=== PATIENT | female | born 1995 | race Caucasian/White ===

== ENCOUNTER 2018-04-20 15:44 | Emergency (ER) | payer OTHER ==
[2018-04-20 16:28] LABS: BILIRUBIN,URINE NEGATIVE (NEGATIVE); GLUCOSE, URINE (UA) NEGATIVE (NEGATIVE); KETONES,URINE (UA) 15 mg/dL (NEGATIVE); LEUKOCYTE ESTERASE, URINE NEGATIVE (NEGATIVE); NITRITE,URINE NEGATIVE (NEGATIVE); OCCULT BLOOD,URINE NEGATIVE (NEGATIVE); PROTEIN,URINE NEGATIVE (NEGATIVE); UROBILINOGEN,URINE 1 (NORMAL) E.U./dL (NORMAL)
[2018-04-20 16:31] LABS: CLARITY,URINE CLEAR (CLEAR); HCG UR QUAL NEGATIVE
[2018-04-20 16:42] LABS: BASOPHILS % (AUTO) 0.2 %; EOSINOPHILS % (AUTO) 0.2 %; HGB - HEMOGLOBIN 14.4 g/dL (12.0-16.0); LYMPHOCYTES # (AUTO) 1.5 10^3/uL (1.5-3.5); LYMPHOCYTES % (AUTO) 14.1 %; MEAN CORPUSCULAR HEMOGLOBIN 31.2 pg (27.0-31.0); MEAN CORPUSCULAR HGB CONC 34.5 g/dL (32.0-36.0); MEAN CORPUSCULAR VOLUME 90.4 fL (81.0-99.0); MEAN PLATELET VOLUME 8.1 fL (7.9-10.8); MONOCYTES # (AUTO) 0.8 10^3/uL (0.0-1.0); MONOCYTES % (AUTO) 7.4 %; NEUTROPHILS # (AUTO) 8.3 10^3/uL (1.5-6.6); NEUTROPHILS % (AUTO) 78.1 %; PLT - PLATELET COUNT 260 10^3/uL (130-450); RED BLOOD COUNT 4.62 10^6/uL (4.20-5.40); RED CELL DISTRIBUTION WIDTH 13.2 % (12.0-15.0); WHITE BLOOD COUNT 10.7 x10^3/uL (4.8-10.8)
[2018-04-20 16:50] LABS: ALBUMIN 5.1 g/dL (3.2-5.5); ALBUMIN/GLOBULIN RATIO 1.3 (1.0-2.2); BILIRUBIN,TOTAL 1.6 mg/dL (0.2-1.0); CALCIUM 9.6 mg/dL (8.5-10.3); CREATININE 0.7 mg/dL (0.4-1.0); TOTAL PROTEIN 8.9 g/dL (6.7-8.2)
[2018-04-20] MEDS ORDERED: SODIUM CHLORIDE 0.9% 1,000 ML IV ONE (16:51)
[2018-04-20] MEDS ORDERED: ONDANSETRON 4 MG/2 ML VIAL IVP STA (16:51)
[2018-04-20] MEDS ORDERED: KETOROLAC 60 MG/2 ML VIAL IVP STA (16:51)
--- NOTE | 2018-04-20 16:54 | ED Physician Documentation ---
PD HPI ABD PAIN - Stated complaint Stated Complaint: N/V/ABD PX - Chief complaint Chief Complaint: Abd Pain - History obtained from History obtained from: Patient - History of Present Illness Timing - onset: Yesterday (Since yesterday morning she has had vomiting and diarrhea the time she vomits she has lower abdominal pain but when she is not vomiting she has no pain. This is a recurrent syndrome for her that she has every few months but it is usually gone after a few hours so it atypical the last day and a half. No fevers.) Review of Systems Ten Systems: 10 systems reviewed and negative Constitutional: denies: Fever, Chills GI: reports: Abdominal Pain, Nausea, Vomiting, Diarrhea. 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 - Present Medications Home Medications: Ambulatory Orders Medication Instructions Recorded Confirmed Clomid 04/20/18 Ondansetron Odt [Zofran] 4 mg TL Q6H PRN #10 tablet 04/20/18 - Allergies Allergies/Adverse Reactions: Allergies Allergy/AdvReac Type Severity Reaction Status Date / Time No Known Drug Allergies Allergy Verified 04/20/18 15:52 - Social History Does the pt smoke?: No Smoking Status: Never smoker Does the pt drink ETOH?: Yes Does the pt have substance abuse?: No - Immunizations Immunizations are current?: Yes PD ED PE NORMAL - Vitals Vital signs reviewed: Yes - General General: Alert and oriented X 3, No acute distress - Abdomen Abdomen: Normal bowel sounds, Soft, Non tender - Neuro Neuro: Alert and oriented X 3, Normal speech - Psych Psych: Normal mood, Normal affect Results - Vitals Vitals: Vital Signs - 24 hr 04/20/18 15:49 Temperature 36.8 C Heart Rate 64 Respiratory 18 Rate Blood Pressure 137/89 H O2 Saturation 96 Oxygen O2 Source Room air - Labs Labs: Laboratory Tests 04/20/18 04/20/18 04/20/18 16:10 16:25 16:25 WBC 10.7 RBC 4.62 Hgb 14.4 Hct 41.8 MCV 90.4 MCH 31.2 H MCHC 34.5 RDW 13.2 Plt Count 260 MPV 8.1 Neut # (Auto) 8.3 H Lymph # (Auto) 1.5 [place] # (Auto) 0.8 Eos # (Auto) 0.0 Baso # (Auto) 0.0 Absolute Nucleated RBC 0.00 Nucleated RBC % 0.0 Sodium 137 Potassium 3.5 Chloride 102 Carbon Dioxide 25 Anion Gap 10.0 BUN 9 Creatinine 0.7 Estimated GFR (MDRD) 102 Glucose 88 Calcium 9.6 Total Bilirubin 1.6 H AST 21 ALT 18 Alkaline Phosphatase 55 Total Protein 8.9 H Albumin 5.1 Globulin 3.8 Albumin/Globulin Ratio 1.3 Lipase 25 Urine Color YELLOW Urine Clarity CLEAR Urine pH 7.0 Ur Specific Chloride 1.020 Urine Protein NEGATIVE Urine Glucose (UA) NEGATIVE Urine Ketones 15 H Urine Occult Blood NEGATIVE Urine Nitrite NEGATIVE Urine Bilirubin NEGATIVE Urine Urobilinogen 1 (NORMAL) Ur Leukocyte Esterase NEGATIVE Ur Microscopic Review NOT INDICATED Urine Culture Comments NOT INDICATED Urine HCG, Qual NEGATIVE PD MEDICAL DECISION MAKING - ED course ED course: 23-year-old woman presents with abdominal pain, nausea and vomiting except most consistent with gastroenteritis. She has no pain when she is not vomiting and her exam is made benign. She was given IV fluids, Toradol, Zofran with complete relief of her symptoms and passed an oral challenge and on recheck prior to discharge she continued to have no abdominal tenderness including to deep palpation in the right lower quadrant. Departure - Departure Disposition: 01 Home, Self Care Clinical Impression: Gastroenteritis Condition: Good Record reviewed to determine appropriate education?: Yes Instructions: ED Gastroenteritis Non Infec Prescriptions: Ondansetron Odt [Zofran] 4 mg TL Q6H PRN #10 tablet PRN Reason: Nausea / Vomiting Comments: Return if you develop right lower quadrant pain or worsen as discussed. Your blood pressure was elevated today on check into the emergency department. This does not mean that you have hypertension, it is a common phenomenon to come to the emergency department and have elevated blood pressure. I recommend that you see your primary care physician within the week to have it rechecked when you are feeling better. Forms: Activity restrictions
[2018-04-20 18:10] VITALS: BP 124/88
== END 2018-04-20 18:10 | disposition home or self-care (01) ==
LOC: ED 15:44
DX: K52.9 Noninfective gastroenteritis and colitis, unspecified (principal); R03.0 Elevated blood-pressure reading, without diagnosis of hypertension
CPT/HCPCS: 36415; 80053; 81001; 81003; 81025; 83690; 85025; 87086; 96374; 99283

== ENCOUNTER 2018-06-13 10:13 | Emergency (ER) | payer OTHER ==
[2018-06-13] MEDS ORDERED: ONDANSETRON ODT 4 MG TABLET TL STA (11:06)
[2018-06-13] MEDS ORDERED: SODIUM CHLORIDE 0.9% 1,000 ML IV ONE (11:53)
[2018-06-13] MEDS ORDERED: KETOROLAC 30 MG/ML VIAL IVP STA (11:53)
[2018-06-13] MEDS ORDERED: ONDANSETRON 4 MG/2 ML VIAL IVP STA (11:53)
--- NOTE | 2018-06-13 11:55 | ED Physician Documentation ---
PD HPI ABD PAIN - Stated complaint Stated Complaint: VOMITING - Chief complaint Chief Complaint: Abd Pain - History obtained from History obtained from: Patient - History of Present Illness Timing - onset: Last night (This is a 23-year-old female with benign past medical history no abdominal surgeries although she has had breast reconstruction for symmetry. For the last 2 years she has recurrent episodes where may be every week or every other week she has central and upper abdominal pain associated with vomiting and diarrhea. Zofran and Zantac have been helpful but she is out of Zofran. She had an episode that started last night and has been vomiting ever since. On my evaluation she is already received she does smoke marijuana but not daily and she finds no relief from a hot shower. There is no association with her menses.) Review of Systems Constitutional: denies: Fever, Chills Cardiac: denies: Chest pain / pressure, Palpitations Respiratory: denies: Dyspnea, Cough GI: reports: Abdominal Pain, Nausea, Vomiting, Diarrhea. 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 - Present Medications Home Medications: Ambulatory Orders Medication Instructions Recorded Confirmed Ondansetron Odt [Zofran] 4 mg TL Q6H PRN #10 tablet 04/20/18 Ondansetron Odt [Zofran] 4 mg TL Q6H PRN #20 tablet 06/13/18 - Allergies Allergies/Adverse Reactions: Allergies Allergy/AdvReac Type Severity Reaction Status Date / Time No Known Drug Allergies Allergy Verified 06/13/18 10:25 - Social History Does the pt smoke?: No Smoking Status: Never smoker Does the pt drink ETOH?: Yes Does the pt have substance abuse?: No - Immunizations Immunizations are current?: Yes - POLST Patient has POLST: No PD ED PE NORMAL - Vitals Vital signs reviewed: Yes - General General: Alert and oriented X 3, Other (Uncomfortable and Retching) - Cardiac Cardiac: RRR, No murmur - Respiratory Respiratory: No respiratory distress, Clear bilaterally - Abdomen Abdomen: Normal bowel sounds, Soft, Non tender - Neuro Neuro: Alert and oriented X 3, Normal speech Results - Vitals Vitals: Vital Signs - 24 hr 06/13/18 10:23 Temperature 36.1 C L Heart Rate 72 Respiratory 18 Rate Blood Pressure 142/89 H O2 Saturation 100 Oxygen O2 Source Room air - Labs Labs: Laboratory Tests 06/13/18 06/13/18 12:03 12:03 WBC 13.1 H RBC 4.95 Hgb 15.5 Hct 44.2 MCV 89.3 MCH 31.4 H MCHC 35.1 RDW 12.4 Plt Count 236 MPV 7.9 Neut # (Auto) 11.6 H Lymph # (Auto) 0.9 L [place] # (Auto) 0.5 Eos # (Auto) 0.0 Baso # (Auto) 0.0 Absolute Nucleated RBC 0.01 Nucleated RBC % 0.0 Sodium 135 Potassium 3.2 L Chloride 103 Carbon Dioxide 18 L Anion Gap 14.0 H BUN 8 Creatinine 0.7 Estimated GFR (MDRD) 102 Glucose 116 H Calcium 9.4 Total Bilirubin 0.8 AST 32 ALT 20 Alkaline Phosphatase 64 Total Protein 8.7 H Albumin 5.0 Globulin 3.7 Albumin/Globulin Ratio 1.4 Lipase 25 PD MEDICAL DECISION MAKING - ED course ED course: This is a very pleasant 23-year-old woman with recurrent vomiting syndrome. Usually resolved by Zofran but she ran out. Passed a p.o. challenge. Remained nontender on reevaluation. Zofran was ineffective here as well as IV Zofran but she found good relief from Reglan. Departure - Departure Disposition: 01 Home, Self Care Clinical Impression: Hypokalemia Vomiting Qualifiers: Vomiting type: unspecified Vomiting Intractability: non-intractable Nausea presence: with nausea Qualified Code(s): R11.2 - Nausea with vomiting, unspecified Abdominal pain Qualifiers: Abdominal location: generalized Qualified Code(s): R10.84 - Generalized abdominal pain Condition: Good Record reviewed to determine appropriate education?: Yes Instructions: Hypokalemia Dc, ED Nausea Vomiting Prescriptions: Ondansetron Odt [Zofran] 4 mg TL Q6H PRN #20 tablet PRN Reason: Nausea / Vomiting Comments: Talk with your doctor about a referral for gastroenterology. Return for new or worsening symptoms anytime. Try stopping marijuana, but as discussed your presentation does not fit cannabinoid hyperemesis syndrome as you do not smoke marijuana every day and find no relief from a hot shower. Your blood pressure was elevated today on check into the emergency department. This does not mean that you have hypertension, it is a common phenomenon to come to the emergency department and have elevated blood pressure. I recommend that you see your primary care physician within the week to have it rechecked when you are feeling better.
[2018-06-13 12:10] LABS: BASOPHILS % (AUTO) 0.3 %; EOSINOPHILS % (AUTO) 0.2 %; HGB - HEMOGLOBIN 15.5 g/dL (12.0-16.0); LYMPHOCYTES # (AUTO) 0.9 10^3/uL (1.5-3.5); LYMPHOCYTES % (AUTO) 6.9 %; MEAN CORPUSCULAR HEMOGLOBIN 31.4 pg (27.0-31.0); MEAN CORPUSCULAR HGB CONC 35.1 g/dL (32.0-36.0); MEAN CORPUSCULAR VOLUME 89.3 fL (81.0-99.0); MEAN PLATELET VOLUME 7.9 fL (7.9-10.8); MONOCYTES # (AUTO) 0.5 10^3/uL (0.0-1.0); MONOCYTES % (AUTO) 4.1 %; NEUTROPHILS # (AUTO) 11.6 10^3/uL (1.5-6.6); NEUTROPHILS % (AUTO) 88.5 %; PLT - PLATELET COUNT 236 10^3/uL (130-450); RED BLOOD COUNT 4.95 10^6/uL (4.20-5.40); RED CELL DISTRIBUTION WIDTH 12.4 % (12.0-15.0); WHITE BLOOD COUNT 13.1 x10^3/uL (4.8-10.8)
[2018-06-13 12:24] LABS: ALBUMIN/GLOBULIN RATIO 1.4 (1.0-2.2); BILIRUBIN,TOTAL 0.8 mg/dL (0.2-1.0); CALCIUM 9.4 mg/dL (8.5-10.3); CREATININE 0.7 mg/dL (0.4-1.0); TOTAL PROTEIN 8.7 g/dL (6.7-8.2)
[2018-06-13] MEDS ORDERED: POTASSIUM BICARB 25 MEQ TABLET PO STA (12:36)
[2018-06-13] MEDS ORDERED: METOCLOPRAMIDE 10 MG/2 ML VIAL IVP STA (12:40)
[2018-06-13] MEDS ORDERED: MORPHINE 2 MG/ML CARPUJECT IVP STA (12:41)
[2018-06-13 13:52] VITALS: BP 117/75
== END 2018-06-13 13:55 | disposition home or self-care (01) ==
LOC: ED 10:13
DX: R11.2 Nausea with vomiting, unspecified (principal); R10.84 Generalized abdominal pain; E87.6 Hypokalemia; R03.0 Elevated blood-pressure reading, without diagnosis of hypertension
CPT/HCPCS: 36415; 80053; 83690; 85025; 96361; 96374; 96375; 99283; A9270; J2765; Q0162

== ENCOUNTER 2018-06-27 18:35 | Observation (INO) | payer OTHER ==
[2018-06-27] MEDS ORDERED: ONDANSETRON 4 MG/2 ML VIAL IVP STA (18:45)
[2018-06-27] MEDS ORDERED: SODIUM CHLORIDE 0.9% 1,000 ML IV ONE (18:45)
[2018-06-27] MEDS ORDERED: SUMAtriptan 6 MG/0.5 ML VIAL SUBQ STA (18:46)
--- NOTE | 2018-06-27 18:48 | ED Physician Documentation ---
PD HPI NVD - Stated complaint Stated Complaint: VOMITING - Chief complaint Chief Complaint: Abd Pain - History obtained from History obtained from: Patient, Family - History of Present Illness Timing - onset: Other (This is a 23-year-old woman who for the last year and a half has had episodic issues with lower abdominal pain and vomiting. There is no particular pattern to it. It happens every month or 2. Starts with nausea and then develops into lower abdominal pain with vomiting. She is been seen several times for it without a clear diagnosis. She smokes marijuana occasionally but not daily. She finds no relief from a hot shower. The last episode was a few days before Clementine, she was seen here and improved with medications and was symptom-free until 2 days ago when she developed this lower abdominal discomfort and nausea with vomiting. She was seen at [facility] because she was up in [place] visiting her parents. Reportedly per her she was treated stepwise with medication but never really resolved. She also had a CAT scan at that time that she says was normal. She really has not had an outpatient workup yet. Had an appointment to see primary care on the da te that she was up at [facility], but missed it due to the emergency department visit.) Review of Systems Ten Systems: 10 systems reviewed and negative Constitutional: denies: Fever, Chills GI: reports: Abdominal Pain, Nausea, Vomiting. 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 - Present Medications Home Medications: Ambulatory Orders Medication Instructions Recorded Confirmed Ondansetron Odt [Zofran] 4 mg TL Q6H PRN #20 tablet 06/13/18 RX: Metoclopramide HCl 5 mg PO TID PRN 06/27/18 06/27/18 RX: Promethazine HCl 12.5 mg RC 06/27/18 - Allergies Allergies/Adverse Reactions: Allergies Allergy/AdvReac Type Severity Reaction Status Date / Time No Known Drug Allergies Allergy Verified 06/27/18 18:42 - Social History Does the pt smoke?: No Smoking Status: Never smoker Does the pt drink ETOH?: Yes Does the pt have substance abuse?: No - Immunizations Immunizations are current?: Yes - POLST Patient has POLST: No PD ED PE NORMAL - Vitals Vital signs reviewed: Yes - General General: Alert and oriented X 3, No acute distress - HEENT HEENT: PERRL, EOMI - Neck Neck: Supple, no meningeal sign, No bony TTP - Cardiac Cardiac: RRR, No murmur - Respiratory Respiratory: No respiratory distress, Clear bilaterally - Abdomen Abdomen: Normal bowel sounds, Soft, Non tender - Back Back: No CVA TTP, No spinal TTP - Derm Derm: Normal color, Warm and dry - Extremities Extremities: No edema, No calf tenderness / cord - Neuro Neuro: Alert and oriented X 3, Normal speech - Psych Psych: Normal mood, Normal affect Results - Vitals Vitals: Vital Signs - 24 hr 06/27/18 06/27/18 06/27/18 18:38 20:46 21:59 Temperature 37.2 C Heart Rate 77 67 59 L Respiratory 18 15 15 Rate Blood Pressure 163/98 H 133/87 H 138/83 H O2 Saturation 98 99 96 Oxygen O2 Source Room air - Labs Labs: Laboratory Tests 06/27/18 06/27/18 19:05 19:09 WBC 11.4 H RBC 5.15 Hgb 16.0 Hct 47.2 H MCV 91.7 MCH 31.0 MCHC 33.8 RDW 12.2 Plt Count 275 MPV 8.7 Neut # (Auto) 8.4 H Lymph # (Auto) 1.9 [place] # (Auto) 1.0 Eos # (Auto) 0.0 Baso # (Auto) 0.0 Absolute Nucleated RBC 0.03 Nucleated RBC % 0.3 Sodium 138 Potassium 2.8 L Chloride 102 Carbon Dioxide 23 Anion Gap 13.0 BUN 10 Creatinine 0.8 Estimated GFR (MDRD) 87 L Glucose 100 Calcium 9.7 Total Bilirubin 1.0 AST 21 ALT 19 Alkaline Phosphatase 59 Total Protein 9.7 H Albumin 5.6 H Globulin 4.1 Albumin/Globulin Ratio 1.4 Lipase 27 PD MEDICAL DECISION MAKING - ED course Complexity details: reviewed old records (We obtained the CT scan report from [facility] dated June 25. The final impression is no acute abnormality within the abdomen or pelvis. Small likely physiologic ovarian cyst bilaterally. Small cyst within the perineum posterior to the urethra. The patient states that she has had this looked at in the past and it was described to her as being a varicose vein.) ED course: 23-year-old woman with recurrent episodic vomiting and lower abdominal pain. Her examination is benign. Her potassium was low when we tried to replete this orally but she was unable to take it. She was administered divided doses of nausea medicine. This started with Zofran and progressed to Reglan, Haldol, Compazine, Phenergan. Her nausea was very difficult to control and even despite these interventions she remained unable to take oral fluids. Her pain however was easy to control and after 2 mg of morphine she really had no more pain. Given her intractable nausea vomiting despite 5 rounds of antiemetics spoke with Dr. Hogan for observation at 10:30 PM. Departure - Departure Disposition: ED Place in Observation Clinical Impression: Vomiting, Hypokalemia Condition: Stable Discharge Date/Time: 06/27/18 23:12
[2018-06-27] MEDS ORDERED: METOCLOPRAMIDE 10 MG/2 ML VIAL IVP STA (19:23)
[2018-06-27 19:30] LABS: ALBUMIN 5.6 g/dL (3.2-5.5); ALBUMIN/GLOBULIN RATIO 1.4 (1.0-2.2); CALCIUM 9.7 mg/dL (8.5-10.3); CREATININE 0.8 mg/dL (0.4-1.0); TOTAL PROTEIN 9.7 g/dL (6.7-8.2)
[2018-06-27] MEDS ORDERED: POTASSIUM BICARB 25 MEQ TABLET PO STA (19:50)
[2018-06-27] MEDS ORDERED: MORPHINE 2 MG/ML CARPUJECT IVP STA (19:53)
[2018-06-27] MEDS ORDERED: HALOPERIDOL 5 MG/ML VIAL IVP ONE (20:25)
[2018-06-27] MEDS ORDERED: PROCHLORPERAZINE 10 MG/2 ML VIAL IVP STA (20:58)
[2018-06-27] MEDS ORDERED: PROMETHAZINE INJ 25 MG in SODIUM CHLORIDE 0.9% 50 ML IV STA (22:06)
[2018-06-27 22:16] LABS: BASOPHILS % (AUTO) 0.4 %; EOSINOPHILS % (AUTO) 0.4 %; LYMPHOCYTES # (AUTO) 1.9 10^3/uL (1.5-3.5); LYMPHOCYTES % (AUTO) 16.3 %; MEAN CORPUSCULAR HGB CONC 33.8 g/dL (32.0-36.0); MEAN CORPUSCULAR VOLUME 91.7 fL (81.0-99.0); MEAN PLATELET VOLUME 8.7 fL (7.9-10.8); MONOCYTES % (AUTO) 8.7 %; NEUTROPHILS # (AUTO) 8.4 10^3/uL (1.5-6.6); NEUTROPHILS % (AUTO) 74.2 %; PLT - PLATELET COUNT 275 10^3/uL (130-450); RED BLOOD COUNT 5.15 10^6/uL (4.20-5.40); RED CELL DISTRIBUTION WIDTH 12.2 % (12.0-15.0); WHITE BLOOD COUNT 11.4 x10^3/uL (4.8-10.8)
[2018-06-27] MEDS ORDERED: MORPHINE 2 MG/ML CARPUJECT IVP PRN (22:33)
--- NOTE | 2018-06-27 22:43 | HISTORY & PHYSICAL EXAMINATION ---
Chief Complaint - Chief Complaint Chief Complaint: Recurrent nausea, emesis with associated abdominal pain History of Present Illness - Admitted From Admitted From:: ED - History Obtained From Records Reviewed: yes History obtained from: patient Exam Limitations: none - History of Present Illness HPI Comment/Other: This is a 23-year-old woman who for the last year and a half has had episodic issues with lower abdominal pain and vomiting. There is no particular pattern to it. It happens every month or 2. Starts with nausea and then develops into lower abdominal pain with vomiting. She is been seen several times for it without a clear diagnosis. She smokes marijuana occasionally but not daily. She finds no relief from a hot shower. The last episode was a few days before Clementine, she was seen here and improved with medications and was symptom-free until 2 days ago when she developed this lower abdominal discomfort and nausea with vomiting. She was seen at [facility] because she was up in [place] visiting her parents. Reportedly per her she was treated stepwise with medication but never really resolved. She also had a CAT scan at that time that she says was normal. She really has not had an outpatient workup yet. Had an appointment to see primary care on the date that she was up at [facility], but missed it due to the emergency department visit. On exam patient appeared clinically dehrated with dry MM and some muscle spasms from hypokalemia. Epigastric pain with no guarding, denied, fevers, chills, dysuria, MP rashes, sick contacts or being . Labs showed severe hypokalemia, cr 0.8, LFT's and lipase normal denies ETOH abuse but states "weekly" marijuana consumption, patient was mildly hemoconcentrated with mild leukocytosis likely inflammatory from cyclical nausea and vomiting, abd pain improved after morphine. Patient received 5 rounds of anti-emetics, KCL po given along with LR. UDS, TSH, and hcg pending. 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 - POLST Patient has POLST: No Meds/Allgy - Home Medications Home Medications: Ambulatory Orders Medication Instructions Recorded Confirmed Ondansetron Odt [Zofran] 4 mg TL Q6H PRN #20 tablet 06/13/18 Metoclopramide HCl 5 mg PO TID PRN 06/27/18 06/27/18 Promethazine HCl 12.5 mg RC 06/27/18 - Allergies Allergies/Adverse Reactions: Allergies Allergy/AdvReac Type Severity Reaction Status Date / Time No Known Drug Allergies Allergy Verified 06/27/18 18:42 Review of Systems - Constitutional Constitutional: reports: Weakness, Poor appetite - Cardiovascular Cariovascular: denies: Palpitations, Chest pain - Respiratory Respiratory: denies: Cough, Sputum production, Wheezing - Gastrointestinal Gastrointestinal: reports: Abdominal pain, Nausea, Vomiting. denies: Diarrhea - Genitourinary Genitourinary: denies: Dysuria, Frequency, Incontinence, Flank pain - Integumentary Integumentary: denies: Rash - Neurological Neurological: denies: Numbness, Seizures - Psychiatric Psychiatric: denies: Depression, Anxiety, Suicidal, Hallucinations - Endocrine Endocrine: denies: Polyuria, Polydypsia, Intolerance to cold, Intolerance to heat - Hematologic/Lymphatic Hematologic/Lymphatic: denies: Anemia, Bruising, Petechiae - All Other Systems All Other Systems: reports: Reviewed and negative Prior Level of Functionality: Patient is ambulatory Exam - Vital Signs Reviewed Vital Signs: Yes Vital Signs: Vital Signs x48h Temp Pulse Resp BP Pulse Ox 06/27/18 21:59 59 L 15 138/83 H 96 06/27/18 20:46 67 15 133/87 H 99 06/27/18 18:38 37.2 C 77 18 163/98 H 98 VSS, afebrile - Physical Exam General Appearance: positive: Other (Ill-appearing) Eyes Bilateral: positive: PERRL, EOMI, Conjunctivae nml ENT: positive: Pharynx nml, Dry mucous membranes Neck: positive: Nml inspection, Thyroid nml, No JVD, Trachea midline. negative: Thyromegaly Respiratory: positive: Chest non-tender, No respiratory distress, Breath sounds nml. negative: Wheezes, Rales Cardiovascular: positive: Regular rate & rhythm, No murmur, No gallop. negative: Irregularly irregular, JVD present Peripheral Pulses: positive: 2+ Abdomen: positive: No organomegaly, Nml bowel sounds, No distention, Tenderness (epigastric on deep palpation w/o guarding). negative: Hepatomegaly, Splenomegaly, Mass Back: positive: Nml inspection. negative: CVA tenderness (R), CVA tenderness (L) Skin: positive: Color nml, No rash, Warm. negative: Pallor Extremities: positive: Non-tender, Full ROM, Nml appearance. negative: Pedal edema Neurologic/Psychiatric: positive: Oriented x3, CN's nml (2-12) Conclusion/Plan - Problem List (1) Intractable cyclical vomiting with nausea Conclusion/Plan: Cannabis hyperemesis syndrome. Likely non-infectious, w/o any evidence of biliary disease or colic, no diarrhea with mild leukocytosis as inflammatory component. Etiology most likely related to patients marijuana use. Will provide supportive care with IVF's, anti-emetics, marinol plus reglan/GI cocktail combo TID ac, IV erythrocin for refractory intractable N/V unresponsive to anti- emetics. Urine/serum hcg, UDS, TSH to follow. (2) Dehydration, moderate Conclusion/Plan: Place on aggressive IVF resuscitation and d/c once K levels normal and patient t olerating po diet. (3) Marijuana use Conclusion/Plan: Patient last used 3 days ago, UDS to follow and confer cannabinoid hypermesis syndrome as etiology of symptoms due to previous symptomatology and duration. (5) Abdominal pain Conclusion/Plan: Likely from mild gastritis and erosive esophagitis from intractable emesis w/o any evidence of blood or bile, LFT's, lipase are normal and would not recommend scoping at this point. Urine/serum hcg, TSH to follow. Morphine prn, bowel rest with slow advancement of diet, full liquid for now. Qualifiers: Abdominal location: epigastric Qualified Code(s): R10.13 - Epigastric pain - Lab Results Lab results reviewed: Yes Fish Bones: 06/27/18 19:09 06/27/18 19:05 - EKG Results EKG Interpreted Independently: No Core Measures - Anticipated LOS I expect patient to be DC'd or transferred within 96 hours.: Yes - DVT/VTE - Prophylaxis VTE/DVT Device ordered at admit?: Yes VTE/DVT Prophylaxis med ordered at admit?: No Not Ordered - Medical Reason: Not indicated
[2018-06-27 22:49] LABS: MUDS CUTOFF CONCENTRATIONS CUTOFF CONC BELOW:
[2018-06-27 22:52] LABS: BILIRUBIN,URINE NEGATIVE (NEGATIVE); GLUCOSE, URINE (UA) NEGATIVE (NEGATIVE); KETONES,URINE (UA) >=80 mg/dL (NEGATIVE); LEUKOCYTE ESTERASE, URINE NEGATIVE (NEGATIVE); NITRITE,URINE NEGATIVE (NEGATIVE); OCCULT BLOOD,URINE NEGATIVE (NEGATIVE); PH,URINE 6.5 PH (5.0-7.5); PROTEIN,URINE NEGATIVE (NEGATIVE); UROBILINOGEN,URINE 1 (NORMAL) E.U./dL (NORMAL)
[2018-06-27 22:53] LABS: CLARITY,URINE CLEAR (CLEAR)
[2018-06-27 22:54] LABS: HCG UR QUAL NEGATIVE
[2018-06-27] MEDS ORDERED: POTASSIUM CHLORIDE INJ 40 MEQ in DEXTROSE 5%-0.45% NACL 980 ML IV SCH (23:00)
[2018-06-27] MEDS ORDERED: LACTATED RINGERS 1,000 ML IV SCH (23:00)
[2018-06-27 23:06] LABS: AMPHETAMINE SCREEN,URINE NEGATIVE (NEGATIVE); BENZODIAZEPINES SCREEN, URINE NEGATIVE (NEGATIVE); COCAINE SCREEN URINE NEGATIVE (NEGATIVE); METHADONE SCREEN, URINE NEGATIVE (NEGATIVE); METHAMPHETAMINES SCREEN, URINE NEGATIVE (NEGATIVE); OPIATE SCREEN, URINE POSITIVE (NEGATIVE); TRICYCLIC ANTIDEPRESSANT,URINE NEGATIVE (NEGATIVE)
[2018-06-27 23:07] LABS: OXYCODONE SCREEN, URINE NEGATIVE (NEGATIVE); PROPOXYPHENE SCREEN, URINE NEGATIVE (NEGATIVE)
[2018-06-27] MEDS: SODIUM CHLORIDE FLUSH 0.9% 10 ML SYRINGE IVP SCH (23:56)
[2018-06-27] MEDS: METOCLOPRAMIDE 10 MG TABLET PO SCH (23:56)
[2018-06-27] MEDS: PANTOPRAZOLE 40 MG VIAL IVP SCH (23:56)
[2018-06-27] MEDS ORDERED: NACL IV SCH (23:58)
[2018-06-27] MEDS ORDERED: POTASSIUM CHLORIDE IV SCH (23:58)
[2018-06-27] MEDS ORDERED: DEXTROSE IV SCH (23:58)
[2018-06-28] MEDS: DRONABINOL 2.5 MG CAPSULE PO SCH ×2 (00:14→08:00)
[2018-06-28] MEDS: D5.45NS W/20 MEQ KCL 1,000 ML IV SCH ×2 (00:33→08:00)
[2018-06-28] MEDS: SODIUM CHLORIDE FLUSH 0.9% 10 ML SYRINGE IVP PRN ×2 (00:43→06:11)
[2018-06-28] MEDS: HYDROcod/ACETAM 5/325 MG TABLET PO PRN ×2 (00:52→06:11)
[2018-06-28] MEDS: ERYTHROMYCIN LACTOBIONATE INJ 500 MG in SODIUM CHLORIDE 0.9% 250 ML IV SCH ×2 (01:43→07:40)
[2018-06-28 05:35] LABS: BASOPHILS % (AUTO) 0.3 %; EOSINOPHILS % (AUTO) 0.4 %; HGB - HEMOGLOBIN 13.4 g/dL (12.0-16.0); LYMPHOCYTES % (AUTO) 21.4 %; MEAN CORPUSCULAR HEMOGLOBIN 31.2 pg (27.0-31.0); MEAN CORPUSCULAR HGB CONC 33.9 g/dL (32.0-36.0); MEAN CORPUSCULAR VOLUME 91.9 fL (81.0-99.0); MEAN PLATELET VOLUME 8.3 fL (7.9-10.8); MONOCYTES % (AUTO) 10.8 %; NEUTROPHILS # (AUTO) 6.2 10^3/uL (1.5-6.6); NEUTROPHILS % (AUTO) 67.1 %; PLT - PLATELET COUNT 226 10^3/uL (130-450); RED CELL DISTRIBUTION WIDTH 12.4 % (12.0-15.0); WHITE BLOOD COUNT 9.2 x10^3/uL (4.8-10.8)
[2018-06-28 05:44] LABS: ALBUMIN/GLOBULIN RATIO 1.4 (1.0-2.2); BILIRUBIN,TOTAL 0.9 mg/dL (0.2-1.0); CALCIUM 8.5 mg/dL (8.5-10.3); CREATININE 0.6 mg/dL (0.4-1.0); MAGNESIUM 2.1 mg/dL (1.7-2.8); TOTAL PROTEIN 6.9 g/dL (6.7-8.2)
[2018-06-28] MEDS: METOCLOPRAMIDE 10 MG TABLET PO SCH ×2 (06:11→10:21)
[2018-06-28] MEDS: PANTOPRAZOLE 40 MG VIAL IVP SCH (06:11)
--- NOTE | 2018-06-28 07:42 | Discharge Plan ---
Discharge Plan Disposition: 01 Home, Self Care Condition: Stable Diet: Regular Activity Restrictions: Activity as Tolerated Shower Restrictions: No Driving Restrictions: No Additional Instructions or Follow Up instructions: You were placed in observation because you could not stop vomiting. We think that you have vomiting from cyclical vomiting syndrome. That is due to cannabis use. We would strongly recommend you refrain from using any form of recreational substance, including cannabis, for the foreseeable future. Especially with cannabis, you need to be off of it for over 6 months for it to make a difference. The chemical stays in your body, as a deposit, 4 months. Cyclical vomiting resulted in dehydration and low potassium. Your dehydration is now resolved, and your potassium is now normal. Please see your primary care provider in follow-up. I believe that you have a workup to complete with regards to the cyclical vomiting and are going to see a specialist in [place]. Please keep that appointment. No Smoking: If you smoke, Please STOP! Call for help. Follow-up with: Fabiola Romero DO [Physician No Access] -
[2018-06-28] MEDS ORDERED: GI COCKTAIL 120 ML BOTTLE PO SCH (08:00)
[2018-06-28] MEDS ORDERED: POTASSIUM CHLORIDE 20 MEQ TABLET PO SCH (08:00)
[2018-06-28] MEDS: SODIUM CHLORIDE FLUSH 0.9% 10 ML SYRINGE IVP SCH (08:01)
[2018-06-28] MEDS ORDERED: POLYETHYLENE GLYCOL 3350 17 GM PACKET PO SCH (09:00)
[2018-06-28 10:22] VITALS: BP 114/64
--- NOTE | 2018-06-28 11:40 | DISCHARGE SUMMARY ---
Physician: Melissa Chadwick MD DATE OF ADMISSION: 06/27/2018 DATE OF DISCHARGE: 06/28/2018 DISCHARGE DIAGNOSES 1. Intractable cyclical vomiting with nausea. 2. Moderate dehydration. 3. Marijuana use. 4. Epigastric abdominal pain. DISCHARGE MEDICATIONS 1. Reglan 5 mg p.o. t.i.d. p.r.n. 2. Promethazine 12.5 mg suppository q.6 hours as needed for nausea. 3. Zofran 4 mg every 6 hours p.o. p.r.n. as needed for nausea. HOSPITAL COURSE: The patient is a 23-year-old female who has been having episodic issues of lower ab dominal pain and vomiting for the last year and a half. She is a regular user of cannabis. There is no particular pattern to it. It happens every month or 2 months. It starts with nausea, then devel ops into lower abdominal pain with vomiting. She has been seen several times without any clear diagn osis. She finds no relief from a hot shower. Last episode was a few days before [place]. She was seen here, improved with medications and symptom-free. Then, 2 days ago, she started having the low er abdominal pain, nausea and vomiting again. She has been seen once at [facility], because she was in [place] visiting her parents. Again, it did not get any better. CT sca n at [facility] was normal. She has not yet had an outpatient workup. She sees a primary care provider in [place]. In our emergency room, she appeared dehydrated with dry mucous membranes, diffuse muscle spasms from hypokalemia to 2.8. Total protein was elevated at 9.7 and TSH was mildly elevated at 5.93. White ce ll count was mildly elevated at 11.4. Urinalysis was positive for ketones. Negative for a nd infection. Urine tox screen was positive for opiates and cannabinoids. She denies any alcohol ab use. Patient was placed in observation overnight. She responded well to just simple IV fluids. She did n ot have any further episodes of emesis. She did take Marinol, morphine, [place], Protonix, potassium. She did not require any further antiemetics while she was overnight. On the morning of discharge, she is awake, alert. Managed to eat part of her breakfast. Chose not t o eat oatmeal because she does not like it. She had no emesis or abdominal pain with this. PHYSICAL EXAMINATION VITAL SIGNS: Temperature is 36.9, pulse of 78, blood pressure is 114/64, respirations 16, 98% on bakari m air. GENERAL: Mildly overweight, young, white female, in no acute distress. LUNGS: Clear. Regular rate and rhythm. ABDOMEN: Soft, nontender. No organomegaly. Normal bowel sounds. is in the room with her. She ambulates in the room and needs no assist to get up out of the bed to go to the bathroom and get back in bed again. PLAN: She is discharged in stable condition to followup with her primary care provider, Dr. Romero. She may need an EGD, upper GI with small-bowel follow-through or gastric emptying study to further ev aluate her. I have asked her not to smoke any cannabis for the next 6-9 months in an effort to see i f eliminating cannabis would eliminate the syndrome altogether. TD: 06/28/2018 10:35
== END 2018-06-28 10:40 | disposition home or self-care (01) ==
LOC: ED 18:35 → MS2 22:33
PROVIDERS: ADMIT Family Medicine; ATTEND Specialist
DX: K31.89 Other diseases of stomach and duodenum (principal); R11.2 Nausea with vomiting, unspecified; E86.0 Dehydration; E87.6 Hypokalemia; R10.13 Epigastric pain
CPT/HCPCS: 36415; 80053; 80306; 81003; 81025; 83690; 83735; 84443; 85025; 96365; 96366; 96367; 96372; 96375; 96376; 99284; 99285; A9270; G0378; J2765; J7040; J7120; Q0167; 81001; 84703; 87086

== ENCOUNTER 2019-01-05 11:00 | Emergency (ER) | payer OTHER ==
[2019-01-05 11:23] LABS: BASOPHILS % (AUTO) 0.2 %; EOSINOPHILS # (AUTO) 0.1 10^3/uL (0.0-0.7); EOSINOPHILS % (AUTO) 0.7 %; HGB - HEMOGLOBIN 15.1 g/dL (12.0-16.0); LYMPHOCYTES # (AUTO) 1.5 10^3/uL (1.5-3.5); LYMPHOCYTES % (AUTO) 16.9 %; MEAN CORPUSCULAR HEMOGLOBIN 31.5 pg (27.0-31.0); MEAN CORPUSCULAR HGB CONC 34.8 g/dL (32.0-36.0); MEAN CORPUSCULAR VOLUME 90.4 fL (81.0-99.0); MEAN PLATELET VOLUME 9.8 fL (7.9-10.8); MONOCYTES # (AUTO) 0.4 10^3/uL (0.0-1.0); MONOCYTES % (AUTO) 4.8 %; PLT - PLATELET COUNT 257 10^3/uL (130-450); RED CELL DISTRIBUTION WIDTH 11.8 % (12.0-15.0)
[2019-01-05 11:37] LABS: ALBUMIN 5.2 g/dL (3.2-5.5); ALBUMIN/GLOBULIN RATIO 1.5 (1.0-2.2); BILIRUBIN,TOTAL 0.8 mg/dL (0.2-1.0); CALCIUM 9.7 mg/dL (8.5-10.3); CREATININE 0.6 mg/dL (0.4-1.0); TOTAL PROTEIN 8.7 g/dL (6.7-8.2)
[2019-01-05] MEDS ORDERED: SODIUM CHLORIDE 0.9% 1,000 ML IV ONE (13:24)
[2019-01-05] MEDS ORDERED: HALOPERIDOL 5 MG/ML VIAL IVP STA ×2 (13:25→13:27)
[2019-01-05] MEDS ORDERED: diphenhydrAMINE INJ 50 MG/ML VIAL IVP STA (13:25)
--- NOTE | 2019-01-05 13:31 | ED Physician Documentation ---
History of Present Illness - Stated complaint Stated Complaint: VOMITING - Chief complaint Chief Complaint: Abd Pain - History obtained from History obtained from: Patient, Family - History of Present Illness Timing: Today Pain level max: 6 Pain level now: 4 - Additonal information Additional information: 23-year-old female with a history of nausea and vomiting. Presents to the emergency department today stating that she is having a recurrence of her symptoms. This occurs every few months. She is currently undergoing a work-up for this. Had a reportedly normal EGD recently. Is being set up for a gastric emptying study. She has had some diarrhea as well. Has not been tested for gluten allergies or food intolerances. She does smoke marijuana every few days. She is not currently , breast-feeding or trying to become . She normally can control the symptoms of Zofran at home. Nothing makes it better. Worse with trying to eat. Review of Systems Ten Systems: 10 systems reviewed and negative Constitutional: denies: Fever, Chills Cardiac: denies: Chest pain / pressure Respiratory: denies: Cough GI: reports: Nausea, Vomiting, Diarrhea. 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) - Past Surgical History Past Surgical History: Yes /RADIO MESSAGE ROUTER: Other - Present Medications Home Medications: Ambulatory Orders Medication Instructions Recorded Confirmed Ondansetron Odt [Zofran Odt] 8 mg TL Q4HR PRN 01/05/19 - Allergies Allergies/Adverse Reactions: Allergies Allergy/AdvReac Type Severity Reaction Status Date / Time No Known Drug Allergies Allergy Verified 01/05/19 11:07 - Social History Does the pt smoke?: No Smoking Status: Never smoker Does the pt drink ETOH?: Yes Does the pt have substance abuse?: No - Immunizations Immunizations are current?: Yes - POLST Patient has POLST: No PD ED PE NORMAL - Vitals Vital signs reviewed: Yes - General General: Alert and oriented X 3, No acute distress, Well developed/nourished - HEENT HEENT: PERRL, Moist mucous membranes - Neck Neck: Supple, no meningeal sign - Cardiac Cardiac: RRR, Strong equal pulses - Respiratory Respiratory: No respiratory distress, Clear bilaterally - Abdomen Abdomen: Soft, Non tender, Non distended - Back Back: No CVA TTP, No spinal TTP - Derm Derm: Warm and dry, No rash - Extremities Extremities: No edema - Neuro Neuro: Alert and oriented X 3 - Psych Psych: Normal mood, Normal affect Results - Vitals Vitals: Vital Signs - 24 hr 01/05/19 01/05/19 11:04 14:36 Temperature 36.7 C Heart Rate 84 72 Respiratory 18 16 Rate Blood Pressure 137/96 H 124/81 H O2 Saturation 100 97 Oxygen O2 Source Room air - Labs Labs: Laboratory Tests 01/05/19 01/05/19 01/05/19 11:18 11:18 11:18 WBC 9.0 RBC 4.80 Hgb 15.1 Hct 43.4 MCV 90.4 MCH 31.5 H MCHC 34.8 RDW 11.8 L Plt Count 257 MPV 9.8 Neut # (Auto) 7.0 H Lymph # (Auto) 1.5 [place] # (Auto) 0.4 Eos # (Auto) 0.1 Baso # (Auto) 0.0 Absolute Nucleated RBC 0.00 Nucleated RBC % 0.0 Sodium 139 Potassium 3.5 Chloride 105 Carbon Dioxide 18 L Anion Gap 16.0 H BUN 9 Creatinine 0.6 Estimated GFR (MDRD) 122 Glucose 127 H Calcium 9.7 Magnesium 1.9 Total Bilirubin 0.8 AST 22 ALT 17 Alkaline Phosphatase 57 Total Protein 8.7 H Albumin 5.2 Globulin 3.5 Albumin/Globulin Ratio 1.5 Lipase 32 PD MEDICAL DECISION MAKING - ED course Complexity details: reviewed results, re-evaluated patient, considered differential, d/w patient ED course: 23-year-old female with vomiting today. This is an ongoing issue for her. She was given 5 mg of haloperidol and Benadryl. Also given IV fluids. Symptoms resolved. Tolerating p.o. without difficulty. Comfortable going home at this time. Recommend that she stop using marijuana if she is able as this may complicate her picture. Patient counseled regarding signs and symptoms for which I believe and urgent re-evaluation would be necessary. Patient with good understanding of and agreement to plan and is comfortable going home at this time This document was made in part using voice recognition software. While efforts are made to proofread this document, sound alike and grammatical errors may occur. Departure - Departure Disposition: 01 Home, Self Care Clinical Impression: Vomiting Qualifiers: Vomiting type: unspecified Vomiting Intractability: non-intractable Nausea presence: with nausea Qualified Code(s): R11.2 - Nausea with vomiting, unspecified Abdominal pain Qualifiers: Abdominal location: generalized Qualified Code(s): R10.84 - Generalized abdominal pain Condition: Good Instructions: ED Nausea Vomiting Follow-Up: Fabiola Romero DO [Primary Care Provider] - Within 1 week Comments: You should keep a food diary and see if any foods trigger your symptoms. Marijuana can also cause cannabinoid induced hyperemesis and this may complicate the picture. You should try refraining from this for a few months to see if this helps. Follow-up with your doctor and GI for further care. Discharge Date/Time: 01/05/19 14:37
[2019-01-05 14:37] VITALS: BP 124/81
== END 2019-01-05 14:37 | disposition home or self-care (01) ==
LOC: ED 11:00
DX: R11.2 Nausea with vomiting, unspecified (principal); R10.84 Generalized abdominal pain; R19.7 Diarrhea, unspecified
CPT/HCPCS: 36415; 80053; 83690; 83735; 85025; 96374; 99283; 99284; J1200

== ENCOUNTER 2019-03-24 09:08 | Emergency (ER) | payer OTHER ==
[2019-03-24] MEDS ORDERED: ONDANSETRON 4 MG/2 ML VIAL IVP STA ×2 (09:23→13:12)
[2019-03-24] MEDS ORDERED: SODIUM CHLORIDE 0.9% 1,000 ML IV STA (09:23)
--- NOTE | 2019-03-24 09:23 | ED Physician Documentation ---
History of Present Illness - Stated complaint Stated Complaint: VOMITING/ABD PX - Chief complaint Chief Complaint: Abd Pain - Additonal information Additional information: This is a 23 year olf female who presents with epigastric pain and repeated vomiting for one day. The emesis is non-bloody. She denies diarrhea. No dysuria. She has had this multiple times in the past and imaging and endoscopy have been unrevealing. She uses marijuana but states this occurs even when she does not use marijuana. No fever. 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) : None HEENT: None Psych: Anxiety Musculoskeletal: None Derm: None - Past Surgical History Past Surgical History: Yes /EMBEDDED CASE MANAGER: Other - Present Medications Home Medications: Ambulatory Orders Medication Instructions Recorded Confirmed Ondansetron Odt [Zofran Odt] 8 mg TL Q4HR PRN 01/05/19 - Allergies Allergies/Adverse Reactions: Allergies Allergy/AdvReac Type Severity Reaction Status Date / Time lorazepam AdvReac Hallucinati Verified 03/24/19 15:03 ons - Social History Does the pt smoke?: No Smoking Status: Never smoker Does the pt drink ETOH?: Yes Does the pt have substance abuse?: No - Immunizations Immunizations are current?: Yes - POLST Patient has POLST: No PD ED PE NORMAL - Vitals Vital signs reviewed: Yes - General General: Alert and oriented X 3, No acute distress - HEENT HEENT: PERRL - Neck Neck: Supple, no meningeal sign - Cardiac Cardiac: RRR - Respiratory Respiratory: No respiratory distress, Clear bilaterally - Abdomen Abdomen: Normal bowel sounds, Soft, Non distended, Other (Tender in the epigastrium. Negative erickson sign. No significant lower abdominal tenderness) - Derm Derm: Warm and dry - Extremities Extremities: No deformity - Neuro Neuro: Alert and oriented X 3 - Psych Psych: Normal mood, Normal affect Results - Vitals Vitals: Vital Signs - 24 hr 03/24/19 03/24/19 03/24/19 09:18 10:30 12:29 Temperature 36.7 C 37.7 C H Heart Rate 71 92 98 Respiratory 17 16 16 Rate Blood Pressure 129/91 H 132/70 H 112/74 O2 Saturation 100 98 99 03/24/19 03/24/19 14:21 17:28 Temperature 37.0 C Heart Rate 94 80 Respiratory 100 H 14 Rate Blood Pressure 140/75 H 135/75 H O2 Saturation 16 L 100 Oxygen O2 Source Room air - Labs Labs: Laboratory Tests 03/24/19 03/24/19 03/24/19 10:00 10:00 10:00 WBC 13.2 H RBC 4.69 Hgb 14.3 Hct 41.9 MCV 89.3 MCH 30.5 MCHC 34.1 RDW 12.0 Plt Count 270 MPV 9.7 Neut # (Auto) 10.9 H Lymph # (Auto) 1.7 [place] # (Auto) 0.6 Eos # (Auto) 0.0 Baso # (Auto) 0.0 Absolute Nucleated RBC 0.00 Nucleated RBC % 0.0 Sodium 138 Potassium 3.3 L Chloride 104 Carbon Dioxide 19 L Anion Gap 15.0 H BUN 11 Creatinine 0.6 Estimated GFR (MDRD) 122 Glucose 121 H Calcium 9.5 Total Bilirubin 0.6 AST 23 ALT 17 Alkaline Phosphatase 48 Total Protein 8.2 Albumin 5.0 Globulin 3.2 Albumin/Globulin Ratio 1.6 Lipase 30 Serum HCG, Qual NEGATIVE Urine Color Urine Clarity Urine pH Ur Specific [place] Urine Protein Urine Glucose (UA) Urine Ketones Urine Occult Blood Urine Nitrite Urine Bilirubin Urine Urobilinogen Ur Leukocyte Esterase Urine RBC Urine WBC Ur Squamous Epith Cells Amorphous Sediment Urine Bacteria Ur Microscopic Review Urine Culture Comments 03/24/19 10:49 WBC RBC Hgb Hct MCV MCH MCHC RDW Plt Count MPV Neut # (Auto) Lymph # (Auto) [place] # (Auto) Eos # (Auto) Baso # (Auto) Absolute Nucleated RBC Nucleated RBC % Sodium Potassium Chloride Carbon Dioxide Anion Gap BUN Creatinine Estimated GFR (MDRD) Glucose Calcium Total Bilirubin AST ALT Alkaline Phosphatase Total Protein Albumin Globulin Albumin/Globulin Ratio Lipase Serum HCG, Qual Urine Color YELLOW Urine Clarity HAZY Urine pH 8.5 H Ur Specific [place] 1.015 Urine Protein NEGATIVE Urine Glucose (UA) NEGATIVE Urine Ketones 15 H Urine Occult Blood NEGATIVE Urine Nitrite NEGATIVE Urine Bilirubin NEGATIVE Urine Urobilinogen 0.2 (NORMAL) Ur Leukocyte Esterase NEGATIVE Urine RBC 0-5 Urine WBC 0-3 Ur Squamous Epith Cells RARE Squamous Amorphous Sediment Few Urine Bacteria Rare Ur Microscopic Review INDICATED Urine Culture Comments NOT INDICATED - Rads (name of study) RUQ US Radiology: Other (Small intraluminal irregularity in the gallbladder neck that would be atypical for a stone. Hepatic steatosis.) PD MEDICAL DECISION MAKING - ED course Complexity details: considered differential (Cannabinoid hyperemesis syndrome, gastritis, pancreatitis, cholecystitis, PUD) ED course: Pt is well appearing with an overall benign abdominal exam but is having multiple episodes of vomiting, she states that when this happens it usually improves with IV medications and fluids. She was given NS, zofran, but continued to have vomiting and required reglan, zofran, and benadryl. Her labs show a mild hypokalemia, otherwise unremarkable. Given the persistence of her symptoms and epigastric tenderness, US was obtained showing a possible irregularity in the lumen of the GB neck. On re-evaluation her symptoms have completely resolved and she is eager to go home. I discussed the US results and the steatosis finding as well, and the need for close outpatient follow up. Patient agrees and was discharged home in the care of her . Departure - Departure Disposition: 01 Home, Self Care Clinical Impression: Vomiting, Abdominal pain Condition: Good Instructions: ED Abdominal Pain Unkn Cause Follow-Up: Fabiola Romero DO [Primary Care Provider] - Within 1 week Comments: You were seen today for abdominal pain. We do not see an obvious cause of your abdominal pain on your labs or ultrasound. You do appear to have some fatty liver, and there was a potential small gallstone in the neck of your gallbladder. Please follow-up with your primary care provider on these findings. If you develop worsening abdominal pain or vomiting, return to the emergency department. Discharge Date/Time: 03/24/19 17:30
[2019-03-24 10:07] LABS: BASOPHILS % (AUTO) 0.2 %; EOSINOPHILS % (AUTO) 0.2 %; HGB - HEMOGLOBIN 14.3 g/dL (12.0-16.0); LYMPHOCYTES # (AUTO) 1.7 10^3/uL (1.5-3.5); LYMPHOCYTES % (AUTO) 12.5 %; MEAN CORPUSCULAR HEMOGLOBIN 30.5 pg (27.0-31.0); MEAN CORPUSCULAR HGB CONC 34.1 g/dL (32.0-36.0); MEAN CORPUSCULAR VOLUME 89.3 fL (81.0-99.0); MEAN PLATELET VOLUME 9.7 fL (7.9-10.8); MONOCYTES # (AUTO) 0.6 10^3/uL (0.0-1.0); MONOCYTES % (AUTO) 4.3 %; NEUTROPHILS # (AUTO) 10.9 10^3/uL (1.5-6.6); NEUTROPHILS % (AUTO) 82.3 %; PLT - PLATELET COUNT 270 10^3/uL (130-450); RED BLOOD COUNT 4.69 10^6/uL (4.20-5.40); WHITE BLOOD COUNT 13.2 x10^3/uL (4.8-10.8)
[2019-03-24 10:25] LABS: ALBUMIN/GLOBULIN RATIO 1.6 (1.0-2.2); BILIRUBIN,TOTAL 0.6 mg/dL (0.2-1.0); CALCIUM 9.5 mg/dL (8.5-10.3); CREATININE 0.6 mg/dL (0.4-1.0); TOTAL PROTEIN 8.2 g/dL (6.7-8.2)
[2019-03-24 10:38] LABS: HCG,QUALITATIVE BLOOD NEGATIVE
[2019-03-24] MEDS ORDERED: METOCLOPRAMIDE 10 MG/2 ML VIAL IVP STA (10:54)
[2019-03-24 11:09] LABS: BILIRUBIN,URINE NEGATIVE (NEGATIVE); GLUCOSE, URINE (UA) NEGATIVE (NEGATIVE); KETONES,URINE (UA) 15 mg/dL (NEGATIVE); LEUKOCYTE ESTERASE, URINE NEGATIVE (NEGATIVE); NITRITE,URINE NEGATIVE (NEGATIVE); OCCULT BLOOD,URINE NEGATIVE (NEGATIVE); PH,URINE 8.5 PH (5.0-7.5); PROTEIN,URINE NEGATIVE (NEGATIVE); UROBILINOGEN,URINE 0.2 (NORMAL) E.U./dL (NORMAL)
[2019-03-24 11:10] LABS: CLARITY,URINE HAZY (CLEAR)
[2019-03-24 11:13] LABS: BACTERIA,URINE Rare /HPF (None Seen); RBC,URINE 0-5 /HPF (0-5); SQUAMOUS EPITHELIAL CELL,UR RARE Squamous (<= Few)
[2019-03-24 11:14] LABS: AMORPHOUS SEDIMENT,UR Few /LPF
[2019-03-24] MEDS ORDERED: diphenhydrAMINE INJ 50 MG/ML VIAL IVP STA (13:38)
[2019-03-24] MEDS ORDERED: diphenhydrAMINE INJ 50 MG/ML VIAL ONE (13:41)
[2019-03-24] MEDS ORDERED: LORazepam 2 MG/ML VIAL IVP STA (14:47)
--- NOTE | 2019-03-24 16:44 | Ultrasound Report ---
Reason: RUQ pain, assess for biliary pathology Procedure Date: 03/24/2019 Accession Number: [id number] / [id number] Procedure: US - Abdomen Limited CPT Code: FULL RESULT: EXAM: ABDOMEN ULTRASOUND LIMITED, RUQ EXAM DATE: 03/24/2019 04:27 PM. CLINICAL HISTORY: RUQ pain, assess for biliary pathology. COMPARISON: None. TECHNIQUE: Real-time scanning was performed with static images obtained. FINDINGS: Liver: Diffusely echogenic liver parenchyma without suspicious mass vertical span is 15.6 cm. Main portal vein flow: Hepatopetal. Gallbladder: There is a small non-mobile echogenic focus in the gallbladder neck without shadowing. Sonographic Sheets's sign is not documented. Biliary System: CBD measures 5 mm. No intrahepatic or extrahepatic ductal dilatation. Other: Unremarkable right kidney with approximate vertical span of 11.8 cm. No hydronephrosis. IMPRESSION: 1. There is a small echogenic intraluminal focus in the gallbladder neck without shadowing which would be atypical for a gallstone. Clinical correlation recommended. 2. Diffusely echogenic liver parenchyma most consistent with steatosis. No suspicious mass or hepatomegaly. RADIA
[2019-03-24 17:28] VITALS: BP 135/75
== END 2019-03-24 17:30 | disposition home or self-care (01) ==
LOC: ED 09:08
DX: R10.13 Epigastric pain (principal); R11.10 Vomiting, unspecified; E87.6 Hypokalemia; K82.8 Other specified diseases of gallbladder; K76.0 Fatty (change of) liver, not elsewhere classified
CPT/HCPCS: 36415; 76705; 80053; 81001; 83690; 84703; 85025; 96361; 96374; 96375; 96376; 99284; 99285; J1200; J2765; 81003; 87086

== ENCOUNTER 2019-12-03 06:05 | Emergency (ER) | payer OTHER ==
[2019-12-03] MEDS ORDERED: SODIUM CHLORIDE 0.9% 1,000 ML IV STA ×2 (06:23→07:54)
[2019-12-03] MEDS ORDERED: diphenhydrAMINE INJ 50 MG/ML VIAL IVP STA (06:30)
[2019-12-03] MEDS ORDERED: METOCLOPRAMIDE 10 MG/2 ML VIAL IVP STA (06:30)
[2019-12-03 06:40] LABS: BASOPHILS % (AUTO) 0.2 %; EOSINOPHILS # (AUTO) 0.1 10^3/uL (0.0-0.7); EOSINOPHILS % (AUTO) 0.6 %; LYMPHOCYTES # (AUTO) 1.4 10^3/uL (1.5-3.5); LYMPHOCYTES % (AUTO) 17.4 %; MEAN CORPUSCULAR HEMOGLOBIN 31.2 pg (27.0-31.0); MEAN CORPUSCULAR HGB CONC 34.8 g/dL (32.0-36.0); MEAN CORPUSCULAR VOLUME 89.6 fL (81.0-99.0); MEAN PLATELET VOLUME 10.1 fL (7.9-10.8); MONOCYTES # (AUTO) 0.6 10^3/uL (0.0-1.0); MONOCYTES % (AUTO) 7.5 %; NEUTROPHILS # (AUTO) 6.1 10^3/uL (1.5-6.6); NEUTROPHILS % (AUTO) 74.2 %; PLT - PLATELET COUNT 233 10^3/uL (130-450); RED BLOOD COUNT 4.81 10^6/uL (4.20-5.40); RED CELL DISTRIBUTION WIDTH 11.9 % (12.0-15.0); WHITE BLOOD COUNT 8.3 x10^3/uL (4.8-10.8)
[2019-12-03 06:53] LABS: ALBUMIN 5.3 g/dL (3.2-5.5); ALBUMIN/GLOBULIN RATIO 1.7 (1.0-2.2); BILIRUBIN,TOTAL 0.6 mg/dL (0.2-1.0); CALCIUM 9.7 mg/dL (8.5-10.3); CREATININE 0.7 mg/dL (0.4-1.0); TOTAL PROTEIN 8.5 g/dL (6.7-8.2)
[2019-12-03 07:09] LABS: BILIRUBIN,URINE NEGATIVE (NEGATIVE); GLUCOSE, URINE (UA) NEGATIVE (NEGATIVE); KETONES,URINE (UA) NEGATIVE (NEGATIVE); LEUKOCYTE ESTERASE, URINE NEGATIVE (NEGATIVE); NITRITE,URINE NEGATIVE (NEGATIVE); OCCULT BLOOD,URINE NEGATIVE (NEGATIVE); PROTEIN,URINE TRACE mg/dL (NEGATIVE); UROBILINOGEN,URINE 0.2 (NORMAL) E.U./dL (NORMAL)
[2019-12-03 07:15] LABS: CLARITY,URINE CLOUDY (CLEAR)
[2019-12-03 07:16] LABS: HCG UR QUAL NEGATIVE
[2019-12-03 07:25] LABS: AMORPHOUS SEDIMENT,UR Marked /LPF; BACTERIA,URINE Moderate /HPF (None Seen); RBC,URINE None Seen /HPF (0-5); SQUAMOUS EPITHELIAL CELL,UR MANY Squamous (<= Few)
[2019-12-03] MEDS ORDERED: HALOPERIDOL 5 MG/ML VIAL IVP STA ×2 (07:25→07:54)
[2019-12-03 07:44] VITALS: BP 125/69
--- NOTE | 2019-12-03 08:06 | ED Physician Documentation ---
History of Present Illness - Stated complaint Stated Complaint: VOMITING - Chief complaint Chief Complaint: Abd Pain - History obtained from History obtained from: Patient - History of Present Illness Timing: Today Pain level max: 4 Pain level now: 4 - Additonal information Additional information: 24-year-old female presents to the emergency department with vomiting for the past 6 hours. She uses marijuana approximately 3 times per week. She has Zofran at home, took this without relief. Nothing makes it better or worse. Has some abdominal cramping. Denies any possibility of . No fever. No diarrhea. No constipation. Patient has a history of same. Frequently feels better after Haldol. 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 HEENT: None Psych: Anxiety Musculoskeletal: None Derm: None - Past Surgical History Past Surgical History: Yes /ANNUAL GREENHOUSE MANAGER: Other - Present Medications Home Medications: Ambulatory Orders Medication Instructions Recorded Confirmed Ondansetron Odt [Zofran Odt] 8 mg TL Q4HR PRN 01/05/19 Ondansetron Odt [Zofran] 4 mg TL Q6H PRN #10 tablet 12/03/19 - Allergies Allergies/Adverse Reactions: Allergies Allergy/AdvReac Type Severity Reaction Status Date / Time lorazepam AdvReac Hallucinati Verified 03/24/19 15:03 ons - Social History Does the pt smoke?: No Smoking Status: Never smoker Does the pt drink ETOH?: Yes Does the pt have substance abuse?: Yes Substance Use and Type: Marijuana - Immunizations Immunizations are current?: Yes - POLST Patient has POLST: No PD ED PE NORMAL - Vitals Vital signs reviewed: Yes - General General: Alert and oriented X 3, No acute distress, Well developed/nourished - HEENT HEENT: PERRL, Moist mucous membranes - Neck Neck: Supple, no meningeal sign - Cardiac Cardiac: RRR, Strong equal pulses - Respiratory Respiratory: No respiratory distress, Clear bilaterally - Abdomen Abdomen: Soft, Non tender, Non distended - Derm Derm: Warm and dry, No rash - Extremities Extremities: No edema - Neuro Neuro: Alert and oriented X 3 - Psych Psych: Normal mood, Normal affect Results - Vitals Vitals: Vital Signs - 24 hr 12/03/19 12/03/19 12/03/19 06:10 06:47 07:43 Temperature 36.7 C Heart Rate 76 80 82 Respiratory 16 18 17 Rate Blood Pressure 135/97 H 131/82 H 125/69 O2 Saturation 100 100 100 Oxygen O2 Source Room air - Labs Labs: Laboratory Tests 12/03/19 12/03/19 12/03/19 06:36 06:36 07:03 WBC 8.3 RBC 4.81 Hgb 15.0 Hct 43.1 MCV 89.6 MCH 31.2 H MCHC 34.8 RDW 11.9 L Plt Count 233 MPV 10.1 Neut # (Auto) 6.1 Lymph # (Auto) 1.[address] [place] # (Auto) 0.6 Eos # (Auto) 0.1 Baso # (Auto) 0.0 Absolute Nucleated RBC 0.00 Nucleated RBC % 0.0 Sodium 138 Potassium 3.6 Chloride 102 Carbon Dioxide 21 Anion Gap 15.0 H BUN 11 Creatinine 0.7 Estimated GFR (MDRD) 101 Glucose 124 H Calcium 9.7 Total Bilirubin 0.6 AST 20 ALT 16 Alkaline Phosphatase 56 Total Protein 8.5 H Albumin 5.3 Globulin 3.2 Albumin/Globulin Ratio 1.7 Lipase 39 Urine Color YELLOW Urine Clarity CLOUDY Urine pH 8.0 H Ur Specific [place] 1.015 Urine Protein TRACE Urine Glucose (UA) NEGATIVE Urine Ketones NEGATIVE Urine Occult Blood NEGATIVE Urine Nitrite NEGATIVE Urine Bilirubin NEGATIVE Urine Urobilinogen 0.2 (NORMAL) Ur Leukocyte Esterase NEGATIVE Urine RBC None Seen Urine WBC 0-3 Ur Squamous Epith Cells MANY Squamous H Amorphous Sediment Marked Urine Bacteria Moderate H Ur Microscopic Review INDICATED Urine Culture Comments NOT INDICATED Urine HCG, Qual 12/03/19 07:03 WBC RBC Hgb Hct MCV MCH MCHC RDW Plt Count MPV Neut # (Auto) Lymph # (Auto) [place] # (Auto) Eos # (Auto) Baso # (Auto) Absolute Nucleated RBC Nucleated RBC % Sodium Potassium Chloride Carbon Dioxide Anion Gap BUN Creatinine Estimated GFR (MDRD) Glucose Calcium Total Bilirubin AST ALT Alkaline Phosphatase Total Protein Albumin Globulin Albumin/Globulin Ratio Lipase Urine Color Urine Clarity Urine pH Ur Specific [place] 1.015 Urine Protein Urine Glucose (UA) Urine Ketones Urine Occult Blood Urine Nitrite Urine Bilirubin Urine Urobilinogen Ur Leukocyte Esterase Urine RBC Urine WBC Ur Squamous Epith Cells Amorphous Sediment Urine Bacteria Ur Microscopic Review Urine Culture Comments Urine HCG, Qual NEGATIVE PD MEDICAL DECISION MAKING - ED course Complexity details: reviewed results, re-evaluated patient, considered differential, d/w patient ED course: 24-year-old female with what appears to be cannabinoid induced hyperemesis. Recurrent issue for her. Given Reglan, Benadryl and Haldol. Symptoms resolved. Feels better after IV fluids as well. Tolerating p.o. without difficulty. Counseled to stop using marijuana. Patient counseled regarding signs and symptoms for which I believe and urgent re-evaluation would be necessary. Patient with good understanding of and agreement to plan and is comfortable going home at this time This document was made in part using voice recognition software. While efforts are made to proofread this document, sound alike and grammatical errors may occur. Departure - Departure Disposition: 01 Home, Self Care Clinical Impression: Cannabinoid hyperemesis syndrome, Intractable cyclical vomiting with nausea Condition: Good Instructions: ED Nausea Vomiting Follow-Up: Fabiola Romero DO [Primary Care Provider] - Prescriptions: Ondansetron Odt [Zofran] 4 mg TL Q6H PRN #10 tablet PRN Reason: Nausea / Vomiting Comments: Follow-up with your doctor for further care. You should try to abstain from marijuana use as this may improve your symptoms. Return if you worsen.
== END 2019-12-03 09:23 | disposition home or self-care (01) ==
LOC: ED 06:05
DX: R11.15 Cyclical vomiting syndrome unrelated to migraine (principal)
CPT/HCPCS: 36415; 80053; 81001; 81025; 83690; 85025; 96361; 96374; 96375; 96376; 99283; 99284; J1200; J2765; 81003; 87086